=== PATIENT | female | born 2000 | race Caucasian/White ===

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

== ENCOUNTER 2022-05-06 20:33 | Emergency (ER) | payer BC, MEDICAID, SELFPAY ==
[2022-05-06 20:40] VITALS: BP 138/87; PULSE 77; RESP 16; TEMP 36.8; O2SAT 100; BMI 31.8
--- NOTE | 2022-05-06 20:53 | ED_ITS ---
HPI - Chest Pain General: Chief Complaint: Chest Pain Stated Complaint: Chest and Arm Pain Time Seen by Provider: 05/06/22 20:48 Source: patient Mode of arrival: ambulatory Limitations: no limitations History of Present Illness: 21-year-old female who states that she has been having right-sided chest pain since 7. States pains been sharp in nature rates it a 3 out of 10 has had some mild dyspnea she denies any worsening proving factors she is currently 18 weeks denies any abdominal pain denies any vaginal bleeding. She denies any cough denies any vomiting. Associated symptoms: Deny abdominal pain, dyspnea, fever(s), nausea or vomiting Review of Systems Const: Denies: fever(s), chills, body aches or change in appetite Eyes: Denies: blurry vision or eye discomfort ENMT: Denies: throat pain or dental pain Card: Reports: chest pain Resp: Denies: dyspnea GI: Denies: abdominal pain, nausea, vomiting or diarrhea : Denies: dysuria Musc: Denies: neck pain or back pain Skin/Breast: Denies: rash Neuro: Denies: headache(s) Psych: Denies: depression Yassine/Lymph: Denies: easy bruising All/Imm: Denies: urticaria PFSH ED PFSH: Medical History (Updated 05/06/22 @ 21:32 by Manuel Allen MD) No pertinent past medical history Social History Smoking and tobacco status: never smoked Alcohol intake: never Physical Exam Const: COMMON NORMALS: no acute distress, patient oriented x3 and healthy appearing HENMT: COMMON NORMALS: normocephalic and atraumatic HEAD & SCALP: norm ocephalic and atraumatic Eye: COMMON NORMALS: Equal, round and reactive pupils present and EOMs intact bilaterally PUPIL: Yes Equal, round and reactive pupils present Neck/C-Spine: COMMON NORMALS: full ROM and supple Chest: COMMONS NORMALS: normal inspection of the chest and normal palpation of entire chest wall Resp: COMMON NORMALS: normal respiratory effort, No retractions, No use of accessory muscles and clear to auscultation bilaterally AUSCULTATION: clear to auscultation bilaterally Cardio: COMMON NORMALS: regular rate, regular rhythm and No murmurs present (Cardio) RATE: regular rate RHYTHM: regular rhythm GI: COMMON NORMALS: Normal to inspection, nondistended, normoactive bowel sounds present, Soft to palpation, non-tender and no masses PALPATION: Yes Soft to palpation Extremity: COMMON NORMALS: normal to inspection and full ROM Neuro: COMMON NORMALS: patient oriented x3, moves all extremities and no focal motor deficits Psych: COMMON NORMALS: mental status grossly normal, Normal thought process present and cooperative THOUGHT PROCESS: Normal thought process present Skin: COMMON NORMALS: no rashes or lesions noted and no wounds GENERAL SKIN EXAM: no rashes or lesions noted Course Vital Signs: Vital signs: Vital Signs Temperature 98.3 F 05/06/22 20:40 Pulse Rate 77 05/06/22 20:40 Respiratory Rate 16 05/06/22 20:40 Blood Pressure 138/87 05/06/22 20:40 Pulse Oximetry 100 05/06/22 20:40 Oxygen Delivery Me thod 05/06/22 20:40 MDM - Chest Pain Medical Decision Making Patient presents for chest pain that is atypical in nature she is well-appearing here x-ray and EKG are normal she is stable for discharge she is to follow-up with PCP and return if worsening. Lab Data Radiology Impressions Chest X-Ray 05/06/22 20:59 IMPRESSION: No acute findings. EKG Data EKG 1: I personally reviewed and interpreted this EKG as follows: EKG interpretation date: 05/06/22 EKG interpretation time: 21:07 Interpretation: nsr hr [address] or t wave abnormalities qrs 84 qtc 389 Discharge Plan Discharge Patient Disposition: Home Clinical Impression: Chest pain Condition: Stable Prescriptions: No Action prenat vit 86-[id number]-fwjud-om3,6 1 tab PO DAILY ibuprofen 800 mg Tablet 800 mg PO TID Qty: 45 0RF iron 325 mg (65 mg iron) tablet 325 mg PO DAILY Qty: 30 3RF Discharge Orders: Discharge ED (Routine); Ordered 05/06/22 Ordered By: Manuel Allen Referrals: Abiel Razo MD [Primary Care Provider] - 1-3 days Discharge Diet: Advance as tolerated Discharge Activity: Resume usual activity Patient Instructions: Chest Pain (ED) Coding Level of Care Code ED Value Engineer for [facility] [place]
--- NOTE | 2022-05-06 20:59 | XRR_ITS ---
PROCEDURE INFORMATION: Exam: XR Chest Exam date and time: 05/06/2022 10:03 PM Age: 21 years old Clinical indication: Radiating; Patient HX: C/O chest pain with radiation to RT shoulder. ; Additional info: Cp TECHNIQUE: Imaging protocol: Radiologic exam of the chest. Views: 1 view. COMPARISON: CR XR acute abdomen series [id number] 02/17/2016 4:19 PM FINDINGS: Lungs: Unremarkable. No consolidation. Pleural spaces: Unremarkable. No pleural effusion. No pneumothorax. Heart/Mediastinum: Unremarkable. No cardiomegaly. Bones/joints: Unremarkable. Other findings: Mild thoracic curvature. XR/XR chest 1V portable [id number] IMPRESSION: No acute findings.
--- NOTE | 2022-05-06 21:07 | ECG_ITS ---
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 Measurements Intervals [place] Rate: 69 P: -10 WV: 118 QRS: 72 QRSD: 84 T: 20 QT: 370 QTc: 398 Interpretive Statements SINUS RHYTHM WITH SINUS ARRHYTHMIA WITH SHORT WV INTERVAL No previous ECG available for comparison Electronically Signed On 05-08-2022 6:33:35 PRESS LEADER by Zoran Mcdonnell M.D. [email or web address]
[2022-05-06] MEDS: acetaminophen 500 mg Tablet 1000 MG PO (21:17)
[2022-05-06 21:38] VITALS: BP 138/87; PULSE 77; RESP 16; TEMP 36.8; O2SAT 100
== END 2022-05-06 21:39 | disposition home or self-care (01) ==
PROVIDERS: Emergency Provider Emergency Medicine; PCP Family Medicine
DX: R07.9 Chest pain, unspecified (principal)
CPT/HCPCS: 71045; 93005; 99284

== ENCOUNTER 2022-06-14 02:55 | Outpatient (CLI) | payer OTHER, BC, MEDICAID, SELFPAY ==
[2022-06-14 02:55] VITALS: BMI 32.3
[2022-06-14 03:04] VITALS: BP 106/62; PULSE 85; TEMP 36.1
[2022-06-14] MEDS: promethazine 25 mg Tablet PO (03:44)
[2022-06-14 03:51] VITALS: RESP 16
[2022-06-14 04:09] LABS: Add Urine Culture? No; Bacteria Urine TRACE /hpf; Bilirubin Urine 1+ (Negative); Blood Urine Neg (Negative); Glucose Urine UA Norm (Normal); Ketones Urine 3+ (Negative); Leukocyte Esterase Urine Negative (Negative); Mucus Urine 3+ /hpf; Nitrate Urine Negative (Negative); Protein Urine Neg (Negative); RBC Urine 0-4 /hpf (0-2); Urine Appearance SL Hazy (CLEAR); Urine Color Yellow (Yellow); Urobilinogen Urine 4 mg/dL (Negative); WBC Urine 0-4 /hpf (0-5); pH Urine 6 (5-7)
[2022-06-14 04:18] VITALS: BP 95/54; PULSE 85
[2022-06-14 04:27] VITALS: BP 95/54; PULSE 85; RESP 16; TEMP 36.6
== END 2022-06-14 04:27 | disposition home or self-care (01) ==
LOC: OPOB 03:00 → OBGYN 03:00
PROVIDERS: PCP Family Medicine; Visit Provider Family Medicine
DX: O21.9 Vomiting of pregnancy, unspecified (principal); Z3A.00 Weeks of gestation of pregnancy not specified
CPT/HCPCS: 81001; 99211; Q0169

== ENCOUNTER 2022-08-20 20:10 | Observation (INO) | payer BC, SELFPAY ==
[2022-08-20 20:10] VITALS: BMI 33.1
[2022-08-20 20:26] VITALS: BP 136/68; PULSE 105; RESP 18
[2022-08-20 20:47] VITALS: BP 114/58; PULSE 94
[2022-08-20 21:01] LABS: Bilirubin Urine Neg (Negative); Blood Urine Neg (Negative); Glucose Urine UA Norm (Normal); Ketones Urine Negative (Negative); Leukocyte Esterase Urine 1+ (Negative); Nitrate Urine Negative (Negative); Protein Urine Neg (Negative); Urine Appearance SL Hazy (CLEAR); Urine Color Colorless (Yellow); Urobilinogen Urine Norm (Negative); pH Urine 7 (5-7)
[2022-08-20 21:02] VITALS: BP 114/61; PULSE 76
[2022-08-20 21:04] LABS: RBC Urine 0-4 /hpf (0-2); Squamous Epithelial Cell Urine 15-25 /hpf (0-5); WBC Urine 40-55 /hpf (0-5)
[2022-08-20 21:07] LABS: Bacteria Urine 1+ /hpf
[2022-08-20 21:19] VITALS: BP 114/61; PULSE 76; RESP 18
[2022-08-20] MEDS: cephALEXin 500 mg Capsule PO (21:30)
== END 2022-08-20 21:45 | disposition home or self-care (01) ==
PROVIDERS: Admitting Provider Family Medicine; PCP Family Medicine; Visit Provider Family Medicine
DX: O26.899 Other specified pregnancy related conditions, unspecified trimester (principal); Z3A.00 Weeks of gestation of pregnancy not specified; M54.50 Low back pain, unspecified; R10.9 Unspecified abdominal pain
CPT/HCPCS: 59025; 81001; 99211; G0378; G0379

== ENCOUNTER 2022-09-02 14:44 | Outpatient (CLI) | payer BC, MEDICAID, SELFPAY ==
[2022-09-02 14:45] VITALS: BMI 33.3
[2022-09-02 15:03] VITALS: TEMP 35.9
[2022-09-02 15:04] VITALS: BP 115/72; PULSE 94
[2022-09-02 15:18] VITALS: BP 105/60; PULSE 82
[2022-09-02 15:21] VITALS: RESP 17
[2022-09-02 15:34] VITALS: BP 109/59; PULSE 96
[2022-09-02] MEDS: guaiFENesin-dextromethorphan UDC 10 mL PO (15:36)
[2022-09-02] MEDS: montelukast sodium 10 mg Tablet PO (15:36)
[2022-09-02 15:40] VITALS: BP 109/59; PULSE 96
== END 2022-09-02 15:40 | disposition home or self-care (01) ==
LOC: OPOB 14:50 → OBGYN 14:52
PROVIDERS: PCP Family Medicine; Visit Provider Family Medicine
DX: O26.899 Other specified pregnancy related conditions, unspecified trimester (principal); R05.9 Cough, unspecified; Z3A.00 Weeks of gestation of pregnancy not specified
CPT/HCPCS: 59025; 99211

== ENCOUNTER 2022-09-26 19:34 | Outpatient (CLI) | payer BC, MEDICAID, SELFPAY ==
[2022-09-26] VITALS (10 sets, daily range): BP systolic 114–124; BP diastolic 66–79; PULSE 86–111; RESP 15; O2SAT 97–99; BMI 33.7
== END 2022-09-26 23:27 | disposition home or self-care (01) ==
LOC: OPOB 19:35 → OBGYN 19:36
PROVIDERS: PCP Family Medicine; Visit Provider Family Medicine
DX: O47.9 False labor, unspecified (principal); Z3A.00 Weeks of gestation of pregnancy not specified
CPT/HCPCS: 59025; 99211

== ENCOUNTER 2022-10-01 11:35 | Inpatient (IN) | payer BC, MEDICAID, SELFPAY ==
[2022-10-01] VITALS (63 sets, daily range): BP systolic 112–147; BP diastolic 66–100; PULSE 63–108; RESP 15–18; TEMP 36.1–36.6; O2SAT 100; BMI 33.3
[2022-10-01] MEDS: ampicillin 2,000 MG in sodium chloride 0.9% (plus) 50 ML 100 MG IV (12:10)
[2022-10-01 12:28] LABS: Basophils # 0.1 10^3/uL (0.0-0.1); Basophils % 0.4 %; Eosinophils % 0.1 %; Hematocrit 27.2 % (37.0-47.0); Hemoglobin 7.7 g/dL (11.5-15.3); Lymphocytes # 2.7 10^3/uL (1.5-6.5); Lymphocytes % 22.8 %; Mean Corpuscular HGB Conc 28.3 g/dL (30.0-36.0); Mean Corpuscular Hemoglobin 19.5 pg (28.0-34.0); Mean Platelet Volume 11.1 fL (7.4-10.4); Monocytes # 0.5 10^3/uL (0.2-0.9); Neutrophils # 8.46 10^3/uL (1.8-8.0); Neutrophils % 72.2 %; Nucleated Red Blood Cells % 0.3 %; Platelet Count 248 10^3/cmm (130-400); Red Blood Count 3.94 10^6/uL (4.1-5.3); Red Cell Distribution Width 18.9 % (12.1-15.1); White Blood Count 11.7 10^3/uL (4.5-13.0)
[2022-10-01] MEDS: lactated ringers 1,000 ML 999 ML IV ×2 (12:50→13:55)
--- NOTE | 2022-10-01 14:00 | P.ANESASSM_ITS ---
Pre-Anesthetic Assessment Height/Weight: Height 1.65 m Weight 90.718 kg Temp Pulse BP Pulse Ox 97.0 F L 78 136/88 100 10/01/22 11:17 10/01/22 13:57 10/01/22 13:56 10/01/22 13:57 Familial anesthetic complications: none Was Beta Mellissa taken within 24 hours: N/A Was Clonidine taken within 24 hours: N/A Social No alcohol and No tobacco Exam alert, oriented x 3, clear to auscultation bilaterally and regular rate & rhythm Airway Submandibular: within normal limits Cervical ROM: within normal limits Mallampati: Class II Dentition: full Anesthetic Plan ASA status: 2 Anesthesia: Regional (specify below) (Labor epidural) Medications/Allergies Home Medications Medication Instructions Recorded Confirmed Last Taken Type prenat vit 76-ggho-thrpv-om3,6 1 tab PO DAILY 06/19/21 10/01/22 10/01/22 History Allergies Allergy/AdvReac Type Severity Reaction Status Date / Time No Known Allergies Allergy Verified 09/01/22 13:41 Current Medications Generic Name Dose Route Start Last Admin Trade Name Freq PRN Reason Stop Dose Admin Lactated Ringer's 1,000 mls @ 999 mls/hr 10/01/22 11:29 10/01/22 13:55 Lactated Ringers IV 999 mls/hr .Q1H1M PRN Administration See label comments Ropivacaine 200 mg in 100 mls @ 13 mls/hr 10/01/22 11:30 10/01/22 13:53 Naropin Premix EPIDURAL 13 mls/hr .Q7H42M FERDINAND Administration [facility] Anesthesia Medical History No pertinent past medical history Social History Smoking and tobacco status: never smoked Alcohol intake: never Female Reproductive History : 2 Data Anesthesia 10/01/22 12:05 Short CBC 10/01/22 Range/Units 12:05 WBC 11.7 (4.5-13.0) 10^3/uL Hgb 7.7 L (11.5-15.3) g/dL Hct 27.2 L (37.0-47.0) % MCV 69.0 L (81-99) fl Plt Count 248 (130-400) 10^3/cmm Neut % (Auto) 72.2 % Neut # (Auto) 8.46 H (1.8-8.0) 10^3/uL Cardiac Studies: No Data to Display Anesthesia Procedures Epidural Time Out Performed: Yes Consents Signed: Procedure Consent Consent: requested by attending/covering physician, from patient, risks and benefits reviewed and patient agrees to proceed Lumbar Level: L3-L4 Epidural position: sitting Epidural procedure: sterile prep of area, 1% lidocaine to numb the area, 18 g n eedle, neg for paresthesia, test dose given, 1.5% xylocaine 1:200k epi, 0.2% Ropivacaine bolus ml (5mls thru needle), placed PCEA, no systemic response, sterile dressing applied and 0.2% Ropiavacaine @ mls/hr (13) Additional Comments: MARILYN at 5cm, cath at 10cm
[2022-10-01] MEDS: ampicillin 1,000 MG in sodium chloride 0.9% (plus) 50 ML 100 MG IV (15:45)
--- NOTE | 2022-10-01 18:43 | PM.OPHPUD ---
Labor & Delivery H&P Update Date of Procedure: October 01, 2022 Date H&P Performed: 09/23/22 Changes to previous documentation: The patient arrived to the hospital in active labor with a cervix that was 5 cm dilated. Admission Diagnosis: 22-year-old 2 para 1-0-0-1 at 39 weeks estimated gestational age presenting in active labor and known to be GBS positive. Planned procedure: Spontaneous vaginal delivery Other information: Patient has had an unremarkable overall. Her labs are notable for being a positive. Her antibody screen was negative. She is rubella nonimmune. She was GBS positive. She failed her 1 hour glucose screen but passed her 3-hour glucose screen. The remainder of her infectious disease profile was within normal limits. The patient arrived to the hospital after having contractions since early this morning. There was no rupture of membranes. Otherwise she had no significant symptoms. Related Problem List Diagnoses (1) 39 weeks gestation of : Anticipate routine labor and vaginal delivery. (2) Positive GBS test: GBS protocol A&P Assessment and plan (1) 39 weeks gestation of : Status: Acute (2) Positive GBS test: Status: Acute
--- NOTE | 2022-10-01 18:48 | PM.DELIVERY ---
Delivery Note: Date of delivery: October 01, 2022 Pre-delivery diagnoses: 1. 22-year-old 2 para 1-0-0-1 at 39 weeks estimated gestational age and GBS positive status presenting in active labor 2. Anemia of Post-delivery diagnoses: Status post spontaneous vaginal delivery Procedure: Spontaneous vaginal delivery Delivering Physician: Abiel Razo Estimated blood loss (mL): 30 Pre-Delivery Course: The patient presented to the hospital in active labor. She was placed on GBS protocol. An epidural was given. An amniotomy was performed. The patient progressed to complete without difficulty. Delivery: DELIVERY: The patient progressed to complete without difficulty. She delivered a female with a weight of 8 pounds 3 ounces with Apgars of 8, 9. The baby was delivered from the BLAIRE position and placed on the mother's abdomen. The cord was then clamped and cut 1 minute after delivery. There was a nuchal cord x1 which was easily reduced prior to delivery of the baby's body. There was no meconium. The placenta and 3 vessel cord were delivered intact shortly thereafter. The perineum and vaginal vault were carefully examined. No lacerations were noted. Both the mother and the baby were in stable condition. Post-Delivery Status: Good Coding Level of Care Code Acute Code for Chg Fwd Diagnoses
[2022-10-01] MEDS: ibuprofen 800 mg tablet PO (21:12)
[2022-10-01] MEDS: benzocaine-menthol 78 gm Canister 1 SPRAY TOPICAL (21:36)
[2022-10-02] VITALS (7 sets, daily range): BP systolic 115–139; BP diastolic 62–84; PULSE 71–88; RESP 14–18; TEMP 36.5–36.8; O2SAT 97–98
[2022-10-02] MEDS: HYDROcodone-acetaminophen 5-325 mg Tablet PO (00:33)
[2022-10-02 06:43] LABS: Hematocrit 21.8 % (37.0-47.0); Mean Corpuscular Hemoglobin 19.3 pg (28.0-34.0); Mean Platelet Volume 11.3 fL (7.4-10.4); Platelet Count 208 10^3/cmm (130-400); Red Blood Count 3.16 10^6/uL (4.1-5.3); Red Cell Distribution Width 18.8 % (12.1-15.1); White Blood Count 13.5 10^3/uL (4.5-13.0)
[2022-10-02 06:47] LABS: Hemoglobin 6.1 g/dL (11.5-15.3)
--- NOTE | 2022-10-02 07:30 | PC.NURSE ---
This writer editor entered pt room to round on pt. This nurse was tidying up pt bedside table for her breakfast tray and noted what appeared to be a vape sitting on her bedside table. Educated pt that vapes are prohibited in the hospital and that it needed to be taken to a vehicle, otherwise it will be confiscated. Pt verbalized understanding.
--- NOTE | 2022-10-02 07:42 | ANE.PACU2 ---
Inpatient post-anesthesia follow up: Airway intact: Yes Vital signs: Temperature 97.9 F Pulse Rate 78 Respiratory Rate 16 Blood Pressure 115/79 Pulse Oximetry 97 Oxygen Delivery Me thod Room Air Oxygen Flow Rate Fraction of Inspir ed Oxygen Hydration adequate: Yes Nausea and vomiting: No Pain level: 2 Mental status: Baseline
[2022-10-02] MEDS: ferrous sulfate EC 325 mg Tablet PO (08:59)
[2022-10-02] MEDS: ibuprofen 800 mg tablet PO ×2 (08:59→16:03)
[2022-10-02] MEDS: docusate sodium 100 mg Capsule PO (08:59)
[2022-10-02] MEDS: prenatal vitamin Capsule 1 CAP PO (08:59)
[2022-10-02 15:19] LABS: Basophils % 0.3 %; Eosinophils % 0.2 %; Hematocrit 23.7 % (37.0-47.0); Hemoglobin 6.6 g/dL (11.5-15.3); Lymphocytes # 3.4 10^3/uL (1.5-6.5); Lymphocytes % 27.1 %; Mean Corpuscular HGB Conc 27.8 g/dL (30.0-36.0); Mean Corpuscular Hemoglobin 19.3 pg (28.0-34.0); Mean Corpuscular Volume 69.3 fl (81-99); Mean Platelet Volume 11.2 fL (7.4-10.4); Monocytes # 0.7 10^3/uL (0.2-0.9); Monocytes % 5.3 %; Neutrophils # 8.37 10^3/uL (1.8-8.0); Neutrophils % 66.6 %; Nucleated Red Blood Cells % 0.2 %; Platelet Count 245 10^3/cmm (130-400); Red Blood Count 3.42 10^6/uL (4.1-5.3); Red Cell Distribution Width 18.6 % (12.1-15.1); White Blood Count 12.6 10^3/uL (4.5-13.0)
[2022-10-02] MEDS: measles,mumps,rubella pf Vial (w/diluent) 0.5 ML SUBCUT (18:50)
--- NOTE | 2022-10-04 09:29 | PM.OBGYDC ---
Discharge Providers ENVIRONMENTAL WE[employer] C[employer]WLER Date of Admission: 10/01/22 11:35 Date of Discharge: 10/02/22 Attending Provider at Admission: Abiel Razo MD Attending Provider at Discharge: Abiel Razo MD Primary Care Provider: Abiel Razo MD Diagnoses at Discharge Discharge Diagnosis (1) 39 weeks gestation of : Status: Resolved (2) Positive GBS test: Status: Resolved Reason for Visit Reason for Visit: contractions Hospital Course Hospital Course The patient presented to the hospital in active labor. GBS protocol was initiated. An epidural was placed. An amniotomy was performed. She progressed to complete and had an unremarkable delivery of a healthy appearing term female infant. The patient was noted to have anemia. Her initial hemoglobin was 7.7. That then dropped to 6.1 postdelivery, but a follow-up hemoglobin was found to be 6.6. Her bleeding was better than average post delivery. She had no clinical symptoms of anemia during her period. She had some difficulty with breast-feeding, but was assisted by the risk consultant. Information Peripartum Data: Infant Delivery Method: Vaginal Physical Exam Narrative: The patient is alert. She appears comfortable. Her heart has a regular rate and rhythm with no murmurs appreciated. Lungs are clear to auscultation bilaterally. Her fundus is firm and below the umbilicus. Urinary Catheter Management: [place]: Cath Placed During This Visit: yes, but has since been removed by the nurse Reason for Continuing Indwelling Catheter: Required Immobilization for Trauma or Surgery or Anesthesia Urinary Catheter Date of Insertion: 10/01/22 Urinary Catheter Time of Insertion: 14:20 Date Urinary Catheter Removed: 10/01/22 Time Urinary Catheter Discontinued: 18:05 Discharge Data Studies Completed and Pending Laboratory Results WBC 12.6 10^3/uL (4.5-13.0) 10/02/22 14:51 RBC 3.42 10^6/uL (4.1-5.3) L 10/02/22 14:51 Hgb 6.6 g/dL (11.5-15.3) L 10/02/22 14:51 Hct 23.7 % (37.0-47.0) L 10/02/22 14:51 MCV 69.3 fl (81-99) L 10/02/22 14:51 MCH 19.3 pg (28.0-34.0) L 10/02/22 14:51 MCHC 27.8 g/dL (30.0-36.0) L 10/02/22 14:51 RDW 18.6 % (12.1-15.1) H 10/02/22 14:51 Plt Count 245 10^3/cmm (130-400) 10/02/22 14:51 MPV 11.2 fL (7.4-10.4) H 10/02/22 14:51 Neut % (Auto) 66.6 % 10/02/22 14:51 Lymph % (Auto) 27.1 % 10/02/22 14:51 [place] % (Auto) 5.3 % 10/02/22 14:51 Eos % (Auto) 0.2 % 10/02/22 14:51 Baso % (Auto) 0.3 % 10/02/22 14:51 Neut # (Auto) 8.37 10^3/uL (1.8-8.0) H 10/02/22 14:51 Lymph # (Auto) 3.4 10^3/uL (1.5-6.5) 10/02/22 14:51 [place] # (Auto) 0.7 10^3/uL (0.2-0.9) 10/02/22 14:51 Eos # (Auto) 0.0 10^3/uL (0.0-0.8) 10/02/22 14:51 Baso # (Auto) 0.0 10^3/uL (0.0-0.1) 10/02/22 14:51 Nucleated RBC % (auto) 0.2 % 10/02/22 14:51 Nucleated RBCs # 0.0 /100WBC 10/02/22 14:51 Vitals Last Vital Signs Temp 97.7 F 10/02/22 19:15 Pulse 82 10/02/22 19:15 Resp 16 10/02/22 19:15 BP 130/64 10/02/22 19:15 Pulse Ox 97 10/02/22 19:15 O2 Del Method Room Air 10/02/22 16:57 Discharge Plan Discharge Patient Disposition: Home Condition: Stable Prescriptions: New ferrous sulfate 325 mg (65 mg iron) Tablet,Delayed Release (Dr/Ec) 325 mg PO BID Qty: 60 0RF Rx Instructions: Take with vitamin C at least 1 hour prior to breakfast and dinner Continued prenat vit 55-txva-fmrno-om3,6 1 tab PO DAILY Discharge Orders: Discharge Order (Routine); Ordered 10/02/22 Ordered By: Abiel Razo Referrals: Abiel Razo MD [Primary Care Provider] - 10/07/22 10:30 am (Please go to the [facility] lab prior to your appointment time for a CBC. ) Discharge Diet: Usual diet Discharge Activity: Limit activity as instructed Patient Instructions: Iron Supplements (By mouth), Depression (DC), Iron Rich Diet (DC), Preeclampsia and Eclampsia After Delivery (GEN), OB Discharge Report, Opioid Safety, OB Home Care, OB Vaginal Deliveries, Abnormal Bleeding Activity Restrictions/Additional Instructions: Take Iron 2 hours before meals and take with vitamin C supplement. 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
== END 2022-10-02 19:22 | disposition home or self-care (01) | DRG 807 ==
LOC: OPOB 12:51 → OBGYN 12:51
PROVIDERS: Admitting Provider Family Medicine; PCP Family Medicine; Visit Provider Family Medicine
DX: O99.824 Streptococcus B carrier state complicating childbirth (principal); Z37.0 Single live birth; Z3A.39 39 weeks gestation of pregnancy; O99.02 Anemia complicating childbirth; D64.9 Anemia, unspecified; O69.81X0 Labor and delivery complicated by cord around neck, without compression, not applicable or unspecified
CPT/HCPCS: 12345; 36415; 51702; 59025; 59409; 83986; 85025; 85027; 90707; 96372; 99211; J0290; J2795; J7120

== ENCOUNTER → 2023-04-14 10:24 | Outpatient (BNVA) | payer BC, MEDICAID, SELFPAY | PROVIDERS: PCP Family Medicine; Visit Provider Emergency Medicine | DX: R68.89 Other general symptoms and signs (principal); J02.9 Acute pharyngitis, unspecified; J11.1 Influenza due to unidentified influenza virus with other respiratory manifestations | CPT/HCPCS: 87071; 87400; 87426; 87880 ==

== ENCOUNTER 2024-05-04 16:57 | Outpatient (CLI) | payer BC, MEDICAID, SELFPAY ==
[2024-05-04 17:15] VITALS: BMI 34.4
[2024-05-04 17:17] VITALS: BP 112/70; PULSE 103
== END 2024-05-04 18:20 | disposition home or self-care (01) ==
LOC: OPOB 17:02 → OBGYN 17:03
PROVIDERS: PCP Family Medicine; Visit Provider Family Medicine
DX: O26.899 Other specified pregnancy related conditions, unspecified trimester (principal); Z3A.00 Weeks of gestation of pregnancy not specified; R10.9 Unspecified abdominal pain
CPT/HCPCS: 59025; 99211

== ENCOUNTER 2024-05-05 04:30 | Inpatient (IN) | payer BC, MEDICAID, SELFPAY ==
[2024-05-05] VITALS (56 sets, daily range): BP systolic 109–150; BP diastolic 62–95; PULSE 70–111; RESP 15–16; TEMP 35.7–36.8; O2SAT 88–100; BMI 33.6
[2024-05-05] MEDS: lactated ringers 1,000 ML 999 ML IV ×2 (04:35→05:53)
[2024-05-05 04:41] LABS: Basophils # 0.1 10^3/uL (0.0-0.1); Basophils % 0.5 %; Eosinophils % 0.2 %; Hematocrit 31.9 % (36-47); Lymphocytes # 2.4 10^3/uL (0.8-4.8); Lymphocytes % 18.1 %; Mean Corpuscular HGB Conc 27.6 g/dL (30-55); Mean Corpuscular Hemoglobin 18.9 pg (27-33); Mean Corpuscular Volume 68.6 fl (85-98); Mean Platelet Volume 10.4 fL (7.4-10.4); Monocytes # 0.8 10^3/uL (0.2-0.9); Monocytes % 5.7 %; Neutrophils # 10.03 10^3/uL (1.8-7.7); Neutrophils % 75.2 %; Nucleated Red Blood Cells % 0.1 %; Platelet Count 255 10^3/cmm (157-399); Red Blood Count 4.65 10^6/uL (3.85-5.65); Red Cell Distribution Width 21.8 % (12.1-15.1); White Blood Count 13.34 10^3/uL (3.29-11.43)
--- NOTE | 2024-05-05 05:50 | P.ANESASSM_ITS ---
Pre-Anesthetic Assessment Height/Weight: Height 1.65 m Weight 91.626 kg Pulse BP Pulse Ox O2 Del Method 90 121/70 100 Room Air 05/05/24 05:48 05/05/24 05:48 05/05/24 05:45 05/05/24 04:33 Preop Diagnosis: labor pain epidural Familial anesthetic complications: none Was Beta Mellissa taken within 24 hours: N/A Was Clonidine taken within 24 hours: N/A Social No alcohol and No tobacco Exam alert and oriented x 3 Airway Submandibular: within normal limits Cervical ROM: within normal limits Mallampati: Class II Dentition: full Pulmonary None reported CV/HEM None reported None reported Hepatic None reported GI None reported Metabolic None reported Musc/skel None reported Neuropsych None reported Anesthetic Plan ASA status: 2 Anesthesia: Anesthesia Evaluation and Regional (specify below) Medications/Allergies Home Medications Medication Instructions Recorded Confirmed Last Taken Type famotidine 20 mg tablet 20 mg PO DAILY 05/05/24 05/05/24 05/04/24 History ferrous sulfate 325 mg (65 mg 325 mg PO BID 05/05/24 05/05/24 05/04/24 History iron) tablet (Iron (ferrous sulfate)) vit no.95-ferrous 1 tab PO 1XD 05/05/24 05/05/24 05/04/24 History fumarate 28 mg-folic acid 800 mcg tablet () Allergies Allergy/AdvReac Type Severity Reaction Status Date / Time No Known Allergies Allergy Verified 05/05/24 04:43 Current Medications Generic Name Dose Route Start Last Admin Trade Name Freq PRN Reason Stop Dose Admin Lactated Ringer's 1,000 mls @ 999 mls/hr 05/05/24 04:27 05/05/24 04:35 Lactated Ringers IV 999 mls/hr .Q1H1M PRN Administration See label comments PFSH Anesthesia Medical History No pertinent past medical history Social History Smoking and tobacco/nicotine status: never used tobacco/nicotine Alcohol intake: never Female Reproductive History : 3 Data Anesthesia 05/05/24 04:30 Short CBC 05/05/24 Range/Units 04:30 WBC 13.34 H (3.29-11.43) 10^3/uL Hgb 8.80 L (11.27-16.99) g/dL Hct 31.9 L (36-47) % MCV 68.6 L (85-98) fl Plt Count 255 (157-399) 10^3/cmm Neut % (Auto) 75.2 % Neut # (Auto) 10.03 H (1.8-7.7) 10^3/uL Blood Bank 05/05/24 04:30 Blood Type A Positive Rho(D) Type Rh positive Antibody Screen Negative Cardiac Studies: 2 No Data to Display Anesthesia Procedures Epidural Time Out Performed: Yes Consents Signed: Procedure Consent Consent: from patient, risks and benefits reviewed and patient agrees to proceed Lumbar Level: L3-L4 Epidural position: sitting Epidural procedure: sterile prep of area, 1% lidocaine to numb the area, 18 g needle, negative for paresthesia passed, neg for paresthesia, test dose given, 1.5% xylocaine 1:200k epi, placed PCEA, no systemic response, sterile dressing applied, L.U.D. no apparent complications and 0.2% Ropiavacaine @ mls/hr (10) Additional Comments: MARILYN at 4.5, negative CSF/heme upon aspiration. taped at 11 at skin.
[2024-05-05] MEDS: ROPivacaine syringe 100 MG/50 ML SYRINGE 10 MG EPIDURAL (05:53)
[2024-05-05] MEDS: dextrose 5%-lactated ringers 1,000 ML 125 ML IV (06:40)
--- NOTE | 2024-05-05 07:17 | PM.OPHPUD ---
Labor & Delivery H&P Update Date of Procedure: May 05, 2024 Date H&P Performed: 05/04/24 Changes to previous documentation: The patient cervix is dilated to 6 Admission Diagnosis: 23-year-old 3 para 2-0-0-2 at 38 weeks estimated gestational age Preop diagnosis: labor pain Planned procedure: Vaginal delivery Other information: The patient has had a relatively unremarkable . She was chlamydia positive earlier in her . She was treated with azithromycin. She also failed her 1 hour glucose screen. She passed her 3-hour glucose screen. She is rubella nonimmune. Otherwise her labs are unremarkable. The patient has not having contractions over the last 24 hours. She came to the OB department yesterday evening and was found not to make any change. She went home and had contractions throughout the night. She arrived this morning and was found to be 6 cm dilated. An epidural was placed. An amniotomy was performed. Related Problem List Diagnoses (1) 38 weeks gestation of : (2) Active labor: A&P Assessment and plan (1) 38 weeks gestation of : I anticipate routine labor and delivery. Status: Acute (2) Active labor: Status: Acute
[2024-05-05] MEDS: oxytocin 30 UNIT/500 ML BAG 600 UNIT IV (08:12)
--- NOTE | 2024-05-05 08:24 | PM.DELIVERY ---
Delivery Note: Date of delivery: May 05, 2024 Pre-delivery diagnoses: 23-year-old 3 para 2-0-0-2 at 38 weeks estimated gestational age Post-delivery diagnoses: Status post spontaneous vaginal delivery Procedure: Spontaneous vaginal delivery Delivering Physician: Abiel Razo Estimated blood loss (mL): 50 Pre-Delivery Course: The patient presented to the hospital in active labor. An epidural was placed. An amniotomy was performed. She was found to be complete about 2 hours after the amniotomy was performed. Delivery: DELIVERY: The patient progressed to complete without difficulty. She delivered a female with a weight of 6 pounds 11 ounces with Apgars of 9, 9. The baby was delivered from the BLAIRE position and placed on the mother's abdomen. The cord was then clamped and cut. There was no nuchal cord. There was no meconium. The placenta and 3 vessel cord were delivered intact shortly thereafter. The perineum and vaginal vault were carefully examined. No lacerations were noted. Both the mother and the baby were in stable condition. Post-Delivery Status: Good History History History 3 Term 2 0 Miscarriages/Ectopic 0 Living Children 2 A&P Assessment and plan (1) 38 weeks gestation of : I anticipate routine care. (2) Spontaneous vaginal delivery: Coding Level of Care Code Acute Code for Chg Fwd Diagnoses 38 weeks gestation of Z3A.38 Spontaneous vaginal delivery O80
[2024-05-05] MEDS: docusate sodium 100 mg Capsule PO ×2 (09:29→20:40)
[2024-05-05] MEDS: PRENATAL VIT NO.130/IRON/FOLIC 1 EACH TABLET PO (09:29)
[2024-05-05] MEDS: ibuprofen 800 mg tablet PO ×3 (09:29→20:40)
--- NOTE | 2024-05-05 14:22 | ANE.PACU2 ---
Inpatient post-anesthesia follow up: Airway intact: Yes Vital signs: Temperature 98.0 F Pulse Rate 84 Respiratory Rate 16 Blood Pressure 127/80 Pulse Oximetry 99 Oxygen Delivery Me thod Room Air Oxygen Flow Rate Fraction of Inspir ed Oxygen Hydration adequate: Yes Nausea and vomiting: No Pain level: 1 Mental status: Baseline Epidural Start/End: Epidural Start Date: 05/05/24 Epidural Start Time: 05:35 Epidural End Date: 05/05/24 Epidural End Time: 09:00
[2024-05-05 21:18] LABS: Hematocrit 27.9 % (36-47); Mean Corpuscular Hemoglobin 19.6 pg (27-33); Mean Corpuscular Volume 70.1 fl (85-98); Platelet Count 228 10^3/cmm (157-399); Red Blood Count 3.98 10^6/uL (3.85-5.65); Red Cell Distribution Width 21.9 % (12.1-15.1); White Blood Count 14.52 10^3/uL (3.29-11.43)
[2024-05-06 04:43] VITALS: BP 119/65; PULSE 84; RESP 16; TEMP 36.7
[2024-05-06 09:30] VITALS: BP 110/78; PULSE 79; TEMP 36.7
[2024-05-06] MEDS: PRENATAL VIT NO.130/IRON/FOLIC 1 EACH TABLET PO (09:48)
[2024-05-06] MEDS: docusate sodium 100 mg Capsule PO (09:48)
[2024-05-06] MEDS: ibuprofen 800 mg tablet PO (09:48)
--- NOTE | 2024-05-06 09:55 | PM.OBGYDC ---
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 An epidural was placed. An amniotomy was performed. She progressed to complete and had an unremarkable delivery of a healthy appearing 38-week female infant. Her course was also unremarkable. She initially started breast-feeding, but shifted to bottlefeeding. Her pain was well-controlled. Her bleeding was within normal limits. There were no concerns. Information Peripartum Data: Infant Delivery Method: Vaginal Physical Exam Narrative: The patient is alert. She appears comfortable. Her heart has a regular rate and rhythm with no murmurs appreciated. Lungs are clear to auscultation bilaterally. Her fundus is firm and below the umbilicus. Urinary Catheter Management: [place]: Cath Placed During This Visit: yes, but has since been removed by the nurse Reason for Continuing Indwelling Catheter: Decision to DC Catheter Urinary Catheter Date of Insertion: 05/05/24 Urinary Catheter Time of Insertion: 06:10 Date Urinary Catheter Removed: 05/05/24 Time Urinary Catheter Discontinued: 08:02 History History History 3 Term 2 0 Miscarriages/Ectopic 0 Living Children 2 Discharge Data Studies Completed and Pending Pending at discharge Category Date Time Status Chlamydia/Gonorrh RNA,TMA URO Routine Lab 05/05/24 07:30 Received Laboratory Results WBC 14.52 10^3/uL (3.29-11.43) H 05/05/24 21:06 Corrected WBC Cancelled 05/05/24 20:40 RBC 3.98 10^6/uL (3.85-5.65) 05/05/24 21:06 Hgb 7.80 g/dL (11.27-16.99) L 05/05/24 21:06 Hct 27.9 % (36-47) L 05/05/24 21:06 MCV 70.1 fl (85-98) L 05/05/24 21:06 MCH 19.6 pg (27-33) L 05/05/24 21:06 MCHC 28.0 g/dL (30-55) L 05/05/24 21:06 RDW 21.9 % (12.1-15.1) H 05/05/24 21:06 Plt Count 228 10^3/cmm (157-399) 05/05/24 21:06 MPV 11.0 fL (7.4-10.4) H 05/05/24 21:06 Neut % (Auto) 75.2 % 05/05/24 04:30 Lymph % (Auto) 18.1 % 05/05/24 04:30 [place] % (Auto) 5.7 % 05/05/24 04:30 Eos % (Auto) 0.2 % 05/05/24 04:30 Baso % (Auto) 0.5 % 05/05/24 04:30 Neut # (Auto) 10.03 10^3/uL (1.8-7.7) H 05/05/24 04:30 Lymph # (Auto) 2.4 10^3/uL (0.8-4.8) 05/05/24 04:30 [place] # (Auto) 0.8 10^3/uL (0.2-0.9) 05/05/24 04:30 Eos # (Auto) 0.0 10^3/uL (0.0-0.8) 05/05/24 04:30 Baso # (Auto) 0.1 10^3/uL (0.0-0.1) 05/05/24 04:30 Nucleated RBC % (auto) 0.1 % 05/05/24 04:30 Nucleated RBCs # 0.0 /100WBC 05/05/24 04:30 Blood Type A Positive 05/05/24 04:30 Rho(D) Type Rh positive 05/05/24 04:30 Antibody Screen Negative 05/05/24 04:30 Vitals Last Vital Signs Temp 98.1 F 05/06/24 04:43 Pulse 84 05/06/24 04:43 Resp 16 05/06/24 04:43 BP 119/65 05/06/24 04:43 Pulse Ox 99 05/05/24 20:42 O2 Del Method Room Air 05/06/24 04:43 Results Labs OB ([facility]): Blood Type A Positive 05/05/24 Antibody Screen Negative 05/05/24 Hct 27.9 % (36-47) L 05/05/24 Hgb 7.80 g/dL (11.27-16.99) L 05/05/24 Rho(D) Type Rh positive 05/05/24 Plt Count 228 10^3/cmm (157-399) 05/05/24 C.trachomatis RNA (TMA) Pending 05/05/24 N.gonorrhoeae RNA (TMA) Pending 05/05/24 Chlamydia/GC Comment Pending 05/05/24 Discharge Plan Discharge Patient Disposition: Home Condition: Stable Prescriptions: New ibuprofen 800 mg Tablet 800 mg PO TID Qty: 45 0RF Continued ferrous sulfate [Iron (ferrous sulfate)] 325 mg (65 mg iron) Tablet 325 mg PO BID PNV cmb#95-ferrous fumarate-FA [] 28 mg iron- 800 mcg Tablet 1 tab PO 1XD Discontinued famotidine 20 mg Tablet 20 mg PO DAILY Discharge Orders: Discharge Order (Routine); Ordered 05/06/24 Ordered By: Abiel Razo Referrals: Abiel Razo MD [Primary Care Provider] - 6 Weeks Discharge Diet: Usual diet Discharge Activity: Limit activity as instructed Patient Instructions: Depression (DC), Opioid Safety (DC), Preeclampsia and Eclampsia After Delivery (GEN), Hemorrhage (DC), OB Discharge Report, OB Food/Drug Interaction Guide, OB Care at Home, Opioid Safety, OB Vaginal Deliveries, Abnormal Bleeding Discharge Attestations S[employer] WE[employer] DEVELOPER Time Spent in Discharge Care*: less than 30 min Coding Level of Care Code Acute Code for Chg Fwd Diagnoses 38 weeks gestation of Z3A.38 Spontaneous vaginal delivery O80
[2024-05-06] MEDS: measles,mumps,rubella pf Vial (w/diluent) 0.5 ML SUBCUT (11:15)
[2024-05-06 12:55] LABS: Chlamydia Trachomatis RNA TMA NOT DETECTED (NOT DETECTED); Neisseria Gonorrhoeae RNA, TMA NOT DETECTED (NOT DETECTED)
[2024-05-06 15:42] VITALS: BP 108/74; PULSE 82; TEMP 36.6; O2SAT 98
== END 2024-05-06 11:40 | disposition home or self-care (01) | DRG 807 ==
LOC: OPOB 05-06 08:01 → OBGYN 05-06 08:02
PROVIDERS: Admitting Provider Family Medicine; PCP Family Medicine; Visit Provider Family Medicine
DX: O80 Encounter for full-term uncomplicated delivery (principal); Z37.0 Single live birth; Z3A.38 38 weeks gestation of pregnancy
CPT/HCPCS: 36415; 51702; 59025; 59409; 85025; 85027; 86850; 86900; 87491; 87591; 90707; 96372; 99211; J2590; J2795; J7120; J7121

== ENCOUNTER → 2024-12-01 17:01 | Outpatient (BNVA) | payer BC, MEDICAID, SELFPAY | PROVIDERS: PCP Family Medicine; Visit Provider Family Medicine | DX: R31.9 Hematuria, unspecified (principal) | CPT/HCPCS: 81000 ==